=== PATIENT | female | born 1985 | race Caucasian/White ===

== ENCOUNTER 2021-02-01 20:37 | Inpatient (IN) | payer OTHER, SELFPAY ==
--- NOTE | ~2021-02-01 | CT_ITS ---
EXAMINATION: CT guided aspiration DATE: 02/02/2021 13:52 INDICATION: Pelvic inflammatory disease with multiple pelvic abscesses. TECHNIQUE: The procedure including the risks, benefits, and alternatives was discussed with the patie nt. Risks discussed included bleeding. The patient understood the risks and benefits and agreed to pr oceed. The patient was confirmed to be receiving appropriate antibiotic coverage. The patient was ana trevin prone. The skin overlying the left buttock was prepped and draped in usual sterile fashion. Anest hetic was administered with 1% lidocaine subcutaneously and in the deeper tissue. An 18 gauge trochar needle was inserted into the perisigmoid abscess with CT guidance. Fluid was aspirated. The patient was then placed supine. The skin overlying the right abdomen was prepped and draped in us ua sterile fashion. Anesthetic was administered with 1% lidocaine subcutaneously and in the deeper t issue. An 18-gauge trochar needle was inserted into the right tubo-ovarian abscess with CT guidance. Fluid was aspirated. The mA was adjusted according to patient size. Iterative reconstruction techniqu e was employed. The dose-length product was 382.74 mGy-cm. There were no immediate complications. FINDINGS: CT images demonstrate the needle within the perisigmoid abscess. 4 mL fluid was aspirated. CT images demonstrate the needle within the right tubo-ovarian abscess. 9 mL fluid was aspirated. No drains were placed. IMPRESSION: 1. CT-guided aspiration of a perisigmoid abscess yielding 4 mL clear, orange-colored fluid, which was discarded. 2. CT-guided aspiration of a right tubo-ovarian abscess using 9 mL opaque, wiseman fluid, which was sent for aerobic and anaerobic cultures. Reviewed, dictated and finalized at location A. IMPRESSION: 1. CT-guided aspiration of a perisigmoid abscess yielding 4 mL clear, orange-co lored fluid, which was discarded. 2. CT-guided aspiration of a right tubo-ovarian abscess using 9 mL opaque, wiseman fluid, which was sent for aerobic and anaerobic cultures.
[2021-02-01 19:40] VITALS: BP 106/72; PULSE 96; RESP 18; TEMP 36.8; O2SAT 100; BMI 32.8
--- NOTE | 2021-02-01 20:21 | ADMGEN ---
This patient, Violet Guillen, was admitted to 3 [facility] Surg Room 300-01. Patient/family oriented to hospital policies and general routines including ID bracelet, bed and alarms, visiting hours, pain management, procedures, bathroom and other care routines, personal items, smoking policy, room service/diet, and visiting hours. Information on how to activate the Rapid Response Team has been discussed. Patient/Family are encouraged to report perceived risks to care and to ask questions if they do not understand what they are told or what they should do.
[2021-02-01] MEDS: DEXTROSE 5%/LACTATED RINGERS 1,000 ML 150 ML IV CONT (22:38)
[2021-02-01] MEDS: AMPICILLIN 2 GM/NS 100 ML 2 GM/100 ML BAG IVPB (22:39)
[2021-02-01] MEDS: CLINDAMYCIN 900 MG/D5W 50 ML 900 MG/50 ML PIGGYBACK 50 MG IVPB (23:29)
[2021-02-01 23:42] VITALS: BP 107/58; PULSE 88; RESP 18; TEMP 37.6; O2SAT 97
[2021-02-02] MEDS: GENTAMICIN SULFATE INJ 315 MG in DEXTROSE 5% 100 ML 100 MG IVPB (00:22)
[2021-02-02] MEDS: HYDROmorphone HCL INJ (*CRX) 1 MG/ML SYR IV PUSH ×5 (03:23→21:58)
[2021-02-02] MEDS: AMPICILLIN 2 GM/NS 100 ML 2 GM/100 ML BAG IVPB ×4 (03:26→21:39)
[2021-02-02 04:00] VITALS: BP 101/61; PULSE 86; RESP 20; TEMP 36.8; O2SAT 99
[2021-02-02] MEDS: CLINDAMYCIN 900 MG/D5W 50 ML 900 MG/50 ML PIGGYBACK 50 MG IVPB ×3 (06:28→22:44)
[2021-02-02 06:44] LABS: Hematocrit 35.2 % (37.0-47.0); Hemoglobin 11.5 g/dL (12.0-15.0); Mean Corpuscular HGB Conc 32.7 g/dl (32-36); Mean Corpuscular Hemoglobin 30.2 pg (26-34); Mean Corpuscular Volume 92.4 fl (80-100); Mean Platelet Volume 8.8 fl (7.4-10.4); Platelet Count Result 266 k/mm3 (150-375); Red Blood Count 3.81 M/mm3 (4.2-5.4); Red Cell Distribution Width 12.6 % (11.5-14.5)
[2021-02-02 07:03] LABS: Alanine Aminotransferase 12 U/L (4-35); Albumin Level 3.3 g/dL (3.5-5.1); Alkaline Phosphatase 98 U/L (38-126); Anion Gap 7 mmol/L (8-16); Aspartate Amino Transferase 19 U/L (14-36); Bilirubin,Total 0.7 mg/dL (0.2-1.3); Blood Urea Nitrogen 8 mg/dL (7-17); Calcium 8.3 mg/dL (8.4-10.2); Carbon Dioxide 32 mmol/L (22-30); Chloride 90 mmol/L (98-107); Estimated CRCL calculation 96 ml/min; Estimated Glomerular Filt Rate > 60; Glucose 127 mg/dL (65-110); Potassium 2.9 mmol/L (3.4-5.0); Sodium 129 mmol/L (137-145)
--- NOTE | 2021-02-02 08:14 | PM.IMHP ---
H&P: HPI History of Present Illness Date/Time: 02/02/21 08:15 this patient is a 35-year-old multiparous female who presented to our institution in transfer from [facility] emergency department. She presented there with 1 week of pelvic pain. She reports today that her pelvic pain was worsening over that period of time. She felt fevers. She was diaphoretic. She denies any history of sexually transmitted disease. She denies any nausea, vomiting, chills. She denies any abnormal vaginal discharge. She has had some irregular vaginal bleeding recently. She has a longstanding history severe menorrhagia. She is on oral contraceptive pills. She also has history of well-controlled hypertension. Chief Complaint: Pelvic pain Review of Systems Constitutional: Constitutional: Reports no additional constitutional complaints, Denies fatigue, Denies headache(s), Denies lethargy and Denies weakness Eyes: Eyes: Reports no additional eye complaints, Denies blurry vision and Denies photophobia ENT: Reports as per HPI, Denies headache(s) and Denies neck pain Cardiovascular: Cardiovascular: Denies chest pain, Denies diaphoresis, Denies leg edema, Denies palpitations and Denies dyspnea Respiratory: Respiratory: Denies hemoptysis, Denies dyspnea and Denies wheezing Gastrointestinal: Gastrointestinal: Denies abdominal pain, Denies melena, Denies bloating, Denies hematochezia, Denies nausea and Denies vomiting Genitourinary: Genitourinary: Reports no additional female genitourinary complaints Musculoskeletal: Musculoskeletal: Denies joint swelling, Denies neck pain, Denies numbness and Denies stiffness Neurologic: Denies Abnormal speech present, Denies confusion, Denies headache(s), Denies numbness and Denies weakness Psychiatric: Psychiatric: Denies anxiety, Denies confusion, Denies depression, Denies homicidal ideation and Denies suicidal ideation Endocrine: Endocrine: Denies fatigue and Denies palpitations Allergic/Immunologic: Allergic/Immunologic: Denies wheezing PMFSH Social History Social History Gender identity (if verbalized by the patient): Female Spiritual care concerns: No Meds Home Medications and Allergies Home Medications Medication Instructions Recorded Confirmed Type norethindrone (contraceptive) 0.35 mg PO DAILY 02/01/21 02/01/21 History [Jencycla] triamterene-hydrochlorothiazid 1 tablet PO DAILY 02/01/21 02/01/21 History Allergies Allergy/AdvReac Type Severity Reaction Status Date / Time No Known Allergies Allergy Verified 02/01/21 21:42 Vital Signs Vital Signs - 24 hr 02/01/21 19:40 02/01/21 23:42 02/02/21 04:00 Temperature 98.2 F 99.7 F H 98.2 F Pulse Rate 96 88 86 Respiratory Rate 18 18 20 Blood Pressure 106/72 107/58 L 101/61 Pulse Oximetry 100 97 99 Exam Const: General: healthy appearing, comfortable and no acute distress; No confusion Orientation/consciousness: No confusion Eyes: Direct Ophthalmoscopy: No photophobia Resp: Auscultation: clear to auscultation bilaterally, no rales, no rhonchi and no wheezes Cardio: Rate: regular rate Heart sounds: no click, no murmurs and no rubs GI: Inspection: non-distended GI Palp: Yes abdominal tenderness Auscultation: normal bowel sounds Neuro: General: No confusion Speech: No Abnormal speech present Extrem: General: normal to inspection, no pedal edema and no calf tenderness H&P: Results Labs Labs: Short CBC 02/02/21 Range/Units 05:55 WBC 14.0 H (4.5-10.0) K/mm3 Hgb 11.5 L (12.0-15.0) g/dL Hct 35.2 L (37.0-47.0) % Plt Count 266 (150-375) k/mm3 BMP 02/02/21 05:55 Sodium 129 L Potassium 2.9 L Chloride 90 L Carbon Dioxide 32 H BUN 8 Creatinine 0.70 Glucose 127 H Calcium 8.3 L Liver Function 02/02/21 Range/Units 05:55 Total Bilirubin 0.7 (0.2-1.3) mg/dL AST 19 (14-36) U/L ALT 12 (4-35) U/L Alkaline Phosphatase 98 (38-126) U/L Albumin 3.3 L (3.5-5.1)
[2021-02-02] MEDS: DEXTROSE 5%/LACTATED RINGERS 1,000 ML 150 ML IV CONT (09:30)
[2021-02-02] MEDS: ONDANSETRON INJ 4 MG/2 ML VIAL IV PUSH (09:31)
[2021-02-02 09:57] LABS: INR 1.3; Prothrombin Time 15.8 Seconds (11.1-14.7)
[2021-02-02 09:58] LABS: Partial Thromboplastin Time 41.7 SECONDS (22.3-36.8)
[2021-02-02 11:38] LABS: Gentamicin Random 1.3 ug/mL (5.0-12.0)
[2021-02-02 12:00] VITALS: BP 115/71; PULSE 89; RESP 18; TEMP 36.7; O2SAT 100
[2021-02-02 13:53] VITALS: BP 112/75; BP 115/71; PULSE 101; PULSE 89; RESP 18; O2SAT 100; O2SAT 93
--- NOTE | 2021-02-02 15:40 | PM.IMCN ---
Assessment and Plan Assessment and plan (1) Sepsis: Code(s): A41.9 - Sepsis, unspecified organism Status: Acute (2) Pelvic abscess: Status: Acute (3) Pelvic inflammatory disease: Code(s): N73.9 - Female pelvic inflammatory disease, unspecified Status: Acute (4) Bacteremia: Code(s): R78.81 - Bacteremia Status: Acute (5) Hypertension: Code(s): I10 - Essential (primary) hypertension Status: Acute (6) Hypokalemia: Code(s): E87.6 - Hypokalemia Status: Acute Additional Plan Sepsis with presenting symptoms with tachycardia and leukocytosis underlying pelvic abscesses as the site of infection Pelvic abscesses multiple seen in CT scan abdomen and pelvis. Plan for CT-guided aspiration/drainage. Suspected from underlying pelvic inflammatory disease. On empiric gentamicin clindamycin and ampicillin per OBGYN Hypokalemia replace continue to monitor check magnesium Right ureteritis? Reactive Bacteremia with Gram-positive cocci in clusters will cover with vancomycin until finalized from [facility]. Will repeat blood cultures here today Hyponatremia [facility] labs showed sodium level of 133 currently 129 will change the fluid to normal saline DVT prophylaxis per primary Full code status Thank you for the consult will follow along with you HPI Data of Consult Consult date: 02/02/21 Requesting Physician: Kervin Mckeon MD Reason for consultation: Medical management Primary Care Provider: NISREEN,MAYRA Galdamez TEST DEVELOPER-C Consult Narrative Narrative: Violet Guillen is a 35 year old female was transferred from [facility] in [place] Emergency Department where she presented with 1 week of lower abdominal pain which has been worsening since then. This is associated with was Shyam bleed for the same duration. She states she just finished her period 2 days prior to the start of new bleeding associated with lower abdominal pain. She denies any fever or chills. She denies any nausea vomiting. No prior history of abnormal vaginal discharge. She does have history of longstanding severe menorrhagia with passes of clots every month. She has been on oral contraceptive pills for this. Along with this she also has history of hypertension for which she is on hydrochlorothiazide and triamterene. Lab work in the ER revealed negative test lactate 1.2 which is within normal limit CMP with creatinine of 0.8 hypokalemic at 3.4 normal LFTs INR 1.1 urinalysis with 5-10 WBC along with 5-10 RBC. Cbc with hemo [place]BC count of 21,[place] [address] platelet of 378 lipase level of 61 CT abdomen and pelvis with contrast showed No significant pulmonary abnormalities no effusion. Bibasilar atelectasis. Liver normal size 7 mm cyst right hepatic lobe. Gallbladder no stones identified no optic in Ng or inflammatory changes. Bile ducts no intrahepatic or extrahepatic ductal dilatation. Spleen normal size no focal lesions. Calcified granulomas. Pancreas no identified cystic or solid masses. No significant calcifications. No adjacent inflammation or peripancreatic fluid collections. Pancreatic duct not dilated. Adrenals normal. Kidneys/urinary tract no identified significant cystic or solid masses. No visualized stones. No hydronephrosis or hydroureter. Symmetric enhancement. There is mild thickening enhancement of the wall of the right ureter. Coronary clinically for right ureteritis. Urinary bladder is unremarkable. GI: There is mild thickening of the wall of the sigmoid colon which is probably reactive. For no evidence of bowel obstruction. Appendix is not definitely visualized. Peritoneum: Small amount of free fluid within the pelvis. No evidence of free air. Retroperitoneum: No mass or adenopathy. Reproductive: The fallopian tubes are dilated bilaterally and there is abundant inflammatory stranding in the adnexal areas bilaterally. On right adnexa there is a 4.1 cm multipl
[2021-02-02 16:00] VITALS: BP 107/61; PULSE 82; RESP 16; TEMP 36.4; O2SAT 96
[2021-02-02] MEDS: SACCHAROMYCES BOULARDII 250 MG CAPSULE PO (17:52)
[2021-02-02] MEDS: HYDROcodone/acetaminophen (*CRX) 5-325 MG TABLET 1 TAB PO (18:35)
[2021-02-02 20:00] VITALS: BP 103/54; PULSE 90; RESP 18; TEMP 35.9; O2SAT 98
[2021-02-02 23:46] VITALS: BP 87/57; PULSE 76; RESP 18; TEMP 36.4; O2SAT 100
[2021-02-03] MEDS: GENTAMICIN SULFATE INJ 315 MG in DEXTROSE 5% 100 ML 100 MG IVPB (00:49)
[2021-02-03] MEDS: HYDROmorphone HCL INJ (*CRX) 1 MG/ML SYR IV PUSH ×5 (01:49→16:42)
[2021-02-03 04:00] VITALS: BP 93/58; PULSE 71; RESP 18; TEMP 36.1; O2SAT 99
[2021-02-03] MEDS: AMPICILLIN 2 GM/NS 100 ML 2 GM/100 ML BAG IVPB ×4 (05:04→22:05)
[2021-02-03 06:12] LABS: Hematocrit 34.7 % (37.0-47.0); Hemoglobin 11.4 g/dL (12.0-15.0); Mean Corpuscular HGB Conc 32.9 g/dl (32-36); Mean Corpuscular Hemoglobin 30.3 pg (26-34); Mean Corpuscular Volume 92.3 fl (80-100); Mean Platelet Volume 8.8 fl (7.4-10.4); Platelet Count Result 244 k/mm3 (150-375); Red Blood Count 3.76 M/mm3 (4.2-5.4); Red Cell Distribution Width 12.6 % (11.5-14.5); White Blood Count 7.6 K/mm3 (4.5-10.0)
[2021-02-03 06:26] LABS: Anion Gap 6 mmol/L (8-16); Blood Urea Nitrogen 7 mg/dL (7-17); Calcium 7.5 mg/dL (8.4-10.2); Carbon Dioxide 28 mmol/L (22-30); Chloride 100 mmol/L (98-107); Estimated CRCL calculation 110 ml/min; Estimated Glomerular Filt Rate > 60; Glucose 95 mg/dL (65-110); Magnesium 1.8 mg/dL (1.6-2.3); Potassium 3.2 mmol/L (3.4-5.0); Sodium 134 mmol/L (137-145)
[2021-02-03] MEDS: CLINDAMYCIN 900 MG/D5W 50 ML 900 MG/50 ML PIGGYBACK 50 MG IVPB ×3 (07:00→23:00)
[2021-02-03 08:00] VITALS: BP 101/61; PULSE 74; RESP 14; TEMP 36.6; O2SAT 98
[2021-02-03] MEDS: HYDROcodone/acetaminophen (*CRX) 5-325 MG TABLET 1 TAB PO (08:43)
[2021-02-03] MEDS: SACCHAROMYCES BOULARDII 250 MG CAPSULE PO ×2 (08:44→16:25)
[2021-02-03] MEDS: SODIUM CHLORIDE 0.9% IV 1,000 ML 75 ML IV CONT (08:46)
--- NOTE | 2021-02-03 10:11 | PM.GYNPNOP ---
JAVA PROGRAMMER ANALYST - A/P Assessment and plan (1) Pelvic abscess: Status: Acute (2) Pelvic inflammatory disease: Code(s): N73.9 - Female pelvic inflammatory disease, unspecified Status: Acute (3) Sepsis: Code(s): A41.9 - Sepsis, unspecified organism Status: Acute (4) Bacteremia: Code(s): R78.81 - Bacteremia Status: Acute (5) Hypertension: Code(s): I10 - Essential (primary) hypertension Status: Acute Assessment and Plan: This patient is a 35-year-old female with pelvic inflammatory disease and tubo-ovarian abscess. Two of the Abscesses were drained yesterday by our percutaneous aspiration, CT-guided. There are 3. Antibiotics were changed to suit a positive blood culture from an outside hospital. To start higher dose progesterone to counter vaginal bleeding. Continue observation. Would consider discharge today patient is interested. She is clinically stable. Could start oral antibiotics. Perhaps recommendation from medicine on oral antibiotics for outpatient treatment. Time Spent With Patient Time: Total time spent is greater than 50% in coordination of care (as documented) at patient's floor/unit and/or counseling patient: Time with patient: 15 - 25 minutes JAVA PROGRAMMER ANALYST- PN:Subj Post-Op Subjective Date/time seen: 02/03/21 10:11 Patient is comfortable, denies fever chills. Mild nausea, no vomiting. Exam Const: General: healthy appearing, comfortable and no acute distress Resp: Auscultation: clear to auscultation bilaterally, no rales, no rhonchi and no wheezes Cardio: Rate: regular rate Heart sounds: no click, no murmurs and no rubs GI: Inspection: non-distended Auscultation: normal bowel sounds Extrem: General: normal to inspection, no pedal edema and no calf tenderness JAVA PROGRAMMER ANALYST - PN: Obj Data Vital Signs Vital Signs: Vital Signs - 24 hr 02/02/21 12:00 02/02/21 13:53 02/02/21 16:00 Temperature 98.1 F 97.6 F Pulse Rate 89 89 82 Respiratory Rate 18 18 16 Blood Pressure 115/71 115/71 107/61 Pulse Oximetry 100 100 96 02/02/21 20:00 02/02/21 23:46 02/03/21 04:00 Temperature 96.6 F L 97.5 F L 96.9 F L Pulse Rate 90 76 71 Respiratory Rate 18 18 18 Blood Pressure 103/54 L 87/57 L 93/58 L Pulse Oximetry 98 100 99 02/03/21 08:00 Temperature 97.8 F Pulse Rate 74 Respiratory Rate 14 Blood Pressure 101/61 Pulse Oximetry 98 Intake/Output Intake/Output: Intake & Output 01/31/21 02/01/21 02/02/21 02/03/21 23:59 23:59 23:59 23:59 Intake Total 100 3277.875 1235 Output Total 700 900 Balance 100 2577.875 335 Meds/Results Medications: Active Medications Generic Name Dose Route Start Last Admin Trade Name Freq PRN Reason Stop Dose Admin Hydrocodone Bitart/Acetaminophen 1 tab 02/02/21 18:12 02/03/21 08:43 Hydrocodone/Acetaminophen (*Crx) 5-325 Mg Tablet PO 1 tab Q4H PRN Administration Pain Rated 4-6 Hydromorphone HCl 1 mg 02/01/21 20:07 02/03/21 09:06 Hydromorphone Hcl Inj (*Crx) 1 Mg/Ml Syr IV PUSH 1 mg Q2HR PRN Administration Pain Rated 7-10 Ampicillin Sodium 2 gm in 100 mls @ 200 mls/hr 02/01/21 22:00 02/03/21 08:44 Ampicillin 2 Gm/Ns 100 Ml IVPB 200 mls/hr Q6H ANDERSON Administration Clindamycin Phosphate 900 mg in 50 mls @ 50 mls/hr 02/01/21 23:00 02/03/21 08:00 Cleocin 900 Mg/D5w 50 Ml IVPB Infused Q8H ANDERSON Infusion Sodium Chloride 1,000 mls @ 75 mls/hr 02/02/21 11:00 02/03/21 08:54 Normal Saline Iv IV CONT Not Given .[id number] ANDERSON Gentamicin Sulfate 315 mg/ 107.875 mls @ 100 mls/hr 02/03/21 00:00 02/03/21 01:15 Dextrose IVPB Infused Q24H ANDERSON Infusion Vancomycin HCl 1,250 mg in 250 mls @ 200 mls/hr 02/02/21 15:00 02/03/21 06:06 Vancomycin 1,250 Mg/D5w 250 Ml IVPB 200 mls/hr Q12H ANDERSON Infusion Ibuprofen 800 mg 08/27/21 18:11 Ibuprofen 400 Mg Tablet PO Q8HR PRN pain 1-3 Ondansetron HCl 4 mg 02/02/21 08:30 02/02/21 09:31 Ondansetron Inj 4 Mg
[2021-02-03 11:52] VITALS: BP 101/64; PULSE 78; RESP 14; TEMP 36.5; O2SAT 100
--- NOTE | 2021-02-03 12:53 | PM.IMPN ---
Progress Note: A&P Assessment and Plan (1) Sepsis: Code(s): A41.9 - Sepsis, unspecified organism Status: Acute (2) Pelvic abscess: Status: Acute (3) Pelvic inflammatory disease: Code(s): N73.9 - Female pelvic inflammatory disease, unspecified Status: Acute (4) Bacteremia: Code(s): R78.81 - Bacteremia Status: Acute (5) Hypertension: Code(s): I10 - Essential (primary) hypertension Status: Acute (6) Hypokalemia: Code(s): E87.6 - Hypokalemia Status: Acute Additional Plan Sepsis due to pelvic inflammatory disease with presenting symptoms with tachycardia and leukocytosis underlying pelvic abscesses as the site of infection Pelvic abscesses multiple seen in CT scan abdomen and pelvis. CT-guided aspiration/drainage 02/02- gram stain with WBC but no organisms, cultures pending. Suspected from underlying pelvic inflammatory disease. On empiric gentamicin clindamycin and ampicillin per OBGYN Vaginal bleeding: Mgt per primary, history of long-standing severe menorrhagia, she is on progesterone which is being titrated Hypokalemia: ordered replacement, monitor Right ureteritis? Reactive, this should be re-assessed once her PID is controlled and pelvic inflammation subsided Bacteremia with Gram-positive cocci in clusters will cover with vancomycin until finalized from outlying hospital. Repeat blood cultures in house pending. Will hold Ibuprofen in setting of receiving gentamicin given combined nephrotoxicity DVT prophylaxis per primary Full code status Subjective Date/time seen: 02/03/21 12:53 Reports persistent abdominal pain with cramps. Reports vaginal bleeding with some clots. Hemodynamically stable but blood pressure is soft. Afebrile. Review of Systems Review of Systems: All systems reviewed & are unremarkable except as noted in HPI and below Exam Narrative: Gen: Alert, looks uncomfortable Abd: Soft, ND, diffusely tender to palpation Heart: RRR Lungs: CTAB Ext: No lower extremity edema Objective Data Vital Signs Vital Signs: Vital Signs - 24 hr 02/02/21 13:53 02/02/21 16:00 02/02/21 20:00 Temperature 97.6 F 96.6 F L Pulse Rate 89 82 90 Respiratory Rate 18 16 18 Blood Pressure 115/71 107/61 103/54 L Pulse Oximetry 100 96 98 02/02/21 23:46 02/03/21 04:00 02/03/21 08:00 Temperature 97.5 F L 96.9 F L 97.8 F Pulse Rate 76 71 74 Respiratory Rate 18 18 14 Blood Pressure 87/57 L 93/58 L 101/61 Pulse Oximetry 100 99 98 02/03/21 11:52 Temperature 97.7 F Pulse Rate 78 Respiratory Rate 14 Blood Pressure 101/64 Pulse Oximetry 100 Intake/Output Intake/Output: Intake & Output 01/31/21 02/01/21 02/02/21 02/03/21 23:59 23:59 23:59 23:59 Intake Total 100 3277.875 1335 Output Total 700 900 Balance 100 2577.875 435 Meds/Results Medications: Active Medications Generic Name Dose Route Start Last Admin Trade Name Freq PRN Reason Stop Dose Admin Hydrocodone Bitart/Acetaminophen 1 tab 02/02/21 18:12 02/03/21 08:43 Hydrocodone/Acetaminophen (*Crx) 5-325 Mg Tablet PO 1 tab Q4H PRN Administration Pain Rated 4-6 Hydromorphone HCl 1 mg 02/01/21 20:07 02/03/21 09:06 Hydromorphone Hcl Inj (*Crx) 1 Mg/Ml Syr IV PUSH 1 mg Q2HR PRN Administration Pain Rated 7-10 Ampicillin Sodium 2 gm in 100 mls @ 200 mls/hr 02/01/21 22:00 02/03/21 09:14 Ampicillin 2 Gm/Ns 100 Ml IVPB Infused Q6H ANDERSON Infusion Clindamycin Phosphate 900 mg in 50 mls @ 50 mls/hr 02/01/21 23:00 02/03/21 08:00 Cleocin 900 Mg/D5w 50 Ml IVPB Infused Q8H ANDERSON Infusion Sodium Chloride 1,000 mls @ 75 mls/hr 02/02/21 11:00 02/03/21 08:54 Normal Saline Iv IV CONT Not Given .[id number] ANDERSON Gentamicin Sulfate 315 mg/ 107.875 mls @ 100 mls/hr 02/03/21 00:00 02/03/21 01:15 Dextrose IVPB Infused Q24H ANDERSON Infusion Vancomycin HCl 1,250 mg in 250 mls @ 200 mls/hr 02/02/21 15:00 02/03/21 06:06 Vancomyci
[2021-02-03] MEDS: ONDANSETRON INJ 4 MG/2 ML VIAL IV PUSH (12:58)
--- NOTE | 2021-02-03 15:56 | PC.NURSE ---
This RN called [facility] to check with lab regarding positive blood culture from 02/01/21 from their ED. Lab stated 1 out of 4 BC positive for a coag negative staph, likely a contaminant. Called these results to Dr. Ferrer, who ordered the vancomycin to be D/C'ed at this time. WIll continue to monitor the growth of BCs at [facility] and the BCs drawn here.
[2021-02-03 16:00] VITALS: BP 103/64; PULSE 76; RESP 16; TEMP 36.8; O2SAT 100
[2021-02-03] MEDS: POTASSIUM CHLORIDE 20 MEQ TABLET 60 MEQ PO (16:24)
[2021-02-03] MEDS: ACETAMINOPHEN 500 MG TABLET PO ×2 (16:25→20:09)
[2021-02-03] MEDS: PROCHLORPERAZINE EDISYLATE 10 MG/2 ML VIAL (16:48)
[2021-02-03 16:50] VITALS: BP 99/65; PULSE 73; RESP 16; TEMP 36.9; O2SAT 98
[2021-02-03 16:51] LABS: Glucose Point of Care 74 mg/dl (65-105)
[2021-02-03 17:29] LABS: Glucose Point of Care 81 mg/dl (65-105)
--- NOTE | 2021-02-03 17:59 | PC.NURSE ---
at 1620, this RN went to give evening medications to patient, noticed pt was extremely pale and diaphoretic, and asked pt how she was feeling. Pt stated she feels like she is in heaven. Asked pt for clarification, pt states she feels not right and nauseated, crying in pain, clutching bedrails, and stating that her contractions are back. In questioning pt, she stated that she feels dizzy. Pt states she has felt dizzy before and ended up passing out and stopping breathing. Took pt vitals (charted as 1650), got pt BS which was 73, gave pt soda and juice at bedside, along with a ruth. Pt states less dizzy. Called MD who came to bedside. He feels it is due to low sugar, asked for 30 minute recheck. Rechecked blood sugar and found it to be 83. Called MD to make aware and see if we wanted to change fluids. He ordered fluids to D5NS at 75 mls/hr. Will hang new fluids and continue to monitor.
[2021-02-03] MEDS: DEXTROSE 5%/0.9% SOD CHL 1,000 ML 75 ML IV CONT (18:51)
[2021-02-03 20:00] VITALS: BP 97/60; PULSE 75; RESP 18; TEMP 35.9; O2SAT 97
[2021-02-04] VITALS (7 sets, daily range): BP systolic 88–114; BP diastolic 52–68; PULSE 61–104; RESP 18–20; TEMP 35.5–36.8; O2SAT 91–100
[2021-02-04] MEDS: GENTAMICIN SULFATE INJ 315 MG in DEXTROSE 5% 100 ML 100 MG IVPB (00:55)
[2021-02-04] MEDS: ACETAMINOPHEN 500 MG TABLET PO ×6 (00:56→21:32)
[2021-02-04] MEDS: AMPICILLIN 2 GM/NS 100 ML 2 GM/100 ML BAG IVPB ×2 (04:39→12:02)
[2021-02-04 06:42] LABS: Anion Gap 6 mmol/L (8-16); Blood Urea Nitrogen 6 mg/dL (7-17); Calcium 7.9 mg/dL (8.4-10.2); Carbon Dioxide 30 mmol/L (22-30); Chloride 100 mmol/L (98-107); Estimated CRCL calculation 110 ml/min; Estimated Glomerular Filt Rate > 60; Glucose 87 mg/dL (65-110); Sodium 136 mmol/L (137-145)
[2021-02-04] MEDS: DEXTROSE 5%/0.9% SOD CHL 1,000 ML 75 ML IV CONT (08:04)
[2021-02-04] MEDS: CLINDAMYCIN 900 MG/D5W 50 ML 900 MG/50 ML PIGGYBACK 50 MG IVPB (08:04)
[2021-02-04] MEDS: SACCHAROMYCES BOULARDII 250 MG CAPSULE PO ×2 (08:09→18:45)
[2021-02-04] MEDS: HYDROcodone/acetaminophen (*CRX) 5-325 MG TABLET 1 TAB PO (08:16)
--- NOTE | 2021-02-04 10:41 | PM.IMPN ---
Progress Note: A&P Assessment and Plan (1) Sepsis: Code(s): A41.9 - Sepsis, unspecified organism Status: Acute (2) Pelvic abscess: Status: Acute (3) Pelvic inflammatory disease: Code(s): N73.9 - Female pelvic inflammatory disease, unspecified Status: Acute (4) Bacteremia: Code(s): R78.81 - Bacteremia Status: Acute (5) Hypertension: Code(s): I10 - Essential (primary) hypertension Status: Acute (6) Hypokalemia: Code(s): E87.6 - Hypokalemia Status: Acute Additional Plan Sepsis due to pelvic inflammatory disease with presenting symptoms with tachycardia and leukocytosis underlying pelvic abscesses as the site of infection Pelvic abscesses multiple seen in CT scan abdomen and pelvis. CT-guided aspiration/drainage 02/02- gram stain with WBC but no organisms, cultures pending. Suspected from underlying pelvic inflammatory disease. On empiric gentamicin clindamycin and ampicillin per OBGYN Vaginal bleeding: Mgt per primary, history of long-standing severe menorrhagia, she is on progesterone which is being titrated Hypokalemia: ordered replacement, monitor Right ureteritis? Reactive, this should be re-assessed once her PID is controlled and pelvic inflammation subsided Bacteremia with Gram-positive cocci in clusters: This was 1/4 bottles an outside hospital, coagulase-negative staph, deemed to be contaminant, vancomycin discontinued. Repeat blood cultures in house negative to date. Will hold Ibuprofen in setting of receiving gentamicin given combined nephrotoxicity DVT prophylaxis per primary Full code status Subjective Date/time seen: 02/04/21 10:41 Feeling her abdominal pain is better this morning. No major issues overnight. Yesterday afternoon she had the low blood glucose readings and was encouraged to increase oral intake. She has not needed IV pain medication through the night. Blood pressure remains soft but otherwise hemodynamically stable. Review of Systems Review of Systems: All systems reviewed & are unremarkable except as noted in HPI and below Exam Narrative: Gen: Alert, NAD Abd: Soft, mildly tender to palpation in the lower quadrants, ND Heart: RRR Lungs: CTAB Ext: No lower extremity edema Objective Data Vital Signs Vital Signs: Vital Signs - 24 hr 02/03/21 11:52 02/03/21 16:00 02/03/21 16:50 Temperature 97.7 F 98.2 F 98.4 F Pulse Rate 78 76 73 Respiratory Rate 14 16 16 Blood Pressure 101/64 103/64 99/65 L Pulse Oximetry 100 100 98 02/03/21 20:00 02/04/21 00:00 02/04/21 04:00 Temperature 96.7 F L 97.0 F L 97.8 F Pulse Rate 75 67 71 Respiratory Rate 18 18 18 Blood Pressure 97/60 L 102/59 L 111/65 Pulse Oximetry 97 100 99 02/04/21 08:00 Temperature 96 F L Pulse Rate 76 Respiratory Rate 20 Blood Pressure 89/54 L Pulse Oximetry 94 Intake/Output Intake/Output: Intake & Output 02/01/21 02/02/21 02/03/21 02/04/21 23:59 23:59 23:59 23:59 Intake Total 100 3277.875 2285 2100 Output Total 700 1600 1000 Balance 100 2577.540 290 9545 Meds/Results Medications: Active Medications Generic Name Dose Route Start Last Admin Trade Name Freq PRN Reason Stop Dose Admin Acetaminophen 500 mg 02/03/21 16:00 02/04/21 08:09 Acetaminophen 500 Mg Tablet PO 500 mg Q4H ANDERSON Administration Hydrocodone Bitart/Acetaminophen 1 tab 02/02/21 18:12 02/04/21 08:16 Hydrocodone/Acetaminophen (*Crx) 5-325 Mg Tablet PO 1 tab Q4H PRN Administration Pain Rated 4-6 Hydromorphone HCl 1 mg 02/01/21 20:07 02/03/21 16:42 Hydromorphone Hcl Inj (*Crx) 1 Mg/Ml Syr IV PUSH 1 mg Q2HR PRN Administration Pain Rated 7-10 Ampicillin Sodium 2 gm in 100 mls @ 200 mls/hr 02/01/21 22:00 02/04/21 04:39 Ampicillin 2 Gm/Ns 100 Ml IVPB 200 mls/hr Q6H ANDERSON Administration Clindamycin Phosphate 900 mg in 50 mls @ 50 mls/hr 02/01/21 23:00 02/04/21 08:04 Cleocin 900 Mg/D5w 50 Ml IVPB 50 mls/hr Q8H
[2021-02-04] MEDS: POTASSIUM CHLORIDE 20 MEQ TABLET.ER 40 MEQ PO ×2 (12:02→18:46)
--- NOTE | 2021-02-04 12:56 | PM.GYNPNOP ---
PRICE ACCURACY SUPERVISOR - A/P Assessment and plan (1) Pelvic abscess: Status: Acute (2) Pelvic inflammatory disease: Code(s): N73.9 - Female pelvic inflammatory disease, unspecified Status: Acute Assessment and Plan: Patient is a 35-year-old female with pelvic inflammatory disease, pelvic abscesses, vaginal bleeding. Vaginal bleeding appears to have resolved at this time. She was given 10 mg of medroxyprogesterone yesterday. This should be continued today. She is afebrile. Her white count is improving, her pain is improving. We are going to change to oral antibiotics this afternoon and continue those consider discharge tomorrow. She is tolerating p.o.. She has not had a bowel movement. To start MiraLax. Time Spent With Patient Time: Total time spent is greater than 50% in coordination of care (as documented) at patient's floor/unit and/or counseling patient: Time with patient: 15 - 25 minutes PRICE ACCURACY SUPERVISOR- PN:Sulma Post-Op Subjective Date/time seen: 02/04/21 12:56 Patient is somnolent, less pelvic pain,, reports feeling better, denies any nausea, vomiting, fever, chills. Denies any vaginal bleeding today. Exam Const: General: healthy appearing, comfortable and no acute distress Resp: Auscultation: clear to auscultation bilaterally, no rales, no rhonchi and no wheezes Cardio: Rate: regular rate Heart sounds: no click, no murmurs and no rubs GI: Inspection: non-distended Auscultation: normal bowel sounds Extrem: General: normal to inspection, no pedal edema and no calf tenderness PRICE ACCURACY SUPERVISOR - PN: Obj Data Vital Signs Vital Signs: Vital Signs - 24 hr 02/03/21 16:00 02/03/21 16:50 02/03/21 20:00 Temperature 98.2 F 98.4 F 96.7 F L Pulse Rate 76 73 75 Respiratory Rate 16 16 18 Blood Pressure 103/64 99/65 L 97/60 L Pulse Oximetry 100 98 97 02/04/21 00:00 02/04/21 04:00 02/04/21 08:00 Temperature 97.0 F L 97.8 F 96 F L Pulse Rate 67 71 76 Respiratory Rate 18 18 20 Blood Pressure 102/59 L 111/65 89/54 L Pulse Oximetry 100 99 94 02/04/21 12:00 Temperature 97.3 F L Pulse Rate 71 Respiratory Rate 20 Blood Pressure 88/52 L Pulse Oximetry 100 Intake/Output Intake/Output: Intake & Output 02/01/21 02/02/21 02/03/21 02/04/21 23:59 23:59 23:59 23:59 Intake Total 100 3277.875 2285 2200 Output Total 700 1600 1000 Balance 100 2577.318 461 9592 Meds/Results Medications: Active Medications Generic Name Dose Route Start Last Admin Trade Name Freq PRN Reason Stop Dose Admin Acetaminophen 500 mg 02/03/21 16:00 02/04/21 12:03 Acetaminophen 500 Mg Tablet PO 500 mg Q4H ANDERSON Administration Hydrocodone Bitart/Acetaminophen 1 tab 02/02/21 18:12 02/04/21 08:16 Hydrocodone/Acetaminophen (*Crx) 5-325 Mg Tablet PO 1 tab Q4H PRN Administration Pain Rated 4-6 Hydromorphone HCl 1 mg 02/01/21 20:07 02/03/21 16:42 Hydromorphone Hcl Inj (*Crx) 1 Mg/Ml Syr IV PUSH 1 mg Q2HR PRN Administration Pain Rated 7-10 Ampicillin Sodium 2 gm in 100 mls @ 200 mls/hr 02/01/21 22:00 02/04/21 12:02 Ampicillin 2 Gm/Ns 100 Ml IVPB 200 mls/hr Q6H ANDERSON Administration Clindamycin Phosphate 900 mg in 50 mls @ 50 mls/hr 02/01/21 23:00 02/04/21 11:25 Cleocin 900 Mg/D5w 50 Ml IVPB 50 mls/hr Q8H ANDERSON Infusion Gentamicin Sulfate 315 mg/ 107.875 mls @ 100 mls/hr 02/03/21 00:00 02/04/21 00:55 Dextrose IVPB 100 mls/hr Q24H ANDERSON Administration Dextrose/Sodium Chloride 1,000 mls @ 75 mls/hr 02/03/21 18:10 02/04/21 08:04 Dextrose 5% Sodium Chloride 0.9% IV CONT 75 mls/hr .[id number] ANDERSON Administration Ibuprofen 800 mg 02/02/21 18:11 Ibuprofen 400 Mg Tablet PO Q8HR PRN pain 1-3 Medroxyprogesterone Acetate 10 mg 02/04/21 09:00 08/29/21 12:03 Medroxyprogesterone Acetate 2.5 Mg Tablet PO 10 mg DAILY ANDERSON Administration Ondansetron HCl 4 mg 02/02/21 08:30 02/03/21 12:58 Ondansetron Inj 4 Mg/2 Ml Vial IV PUSH 4 mg Q6H PRN Administratio
[2021-02-04] MEDS: levoFLOXacin 750 MG TABLET PO (15:35)
[2021-02-04] MEDS: metroNIDAZOLE 250 MG TABLET 500 MG PO ×2 (15:35→21:30)
[2021-02-04] MEDS: polyethylene glycoL 3350 17 GM POWD.PACK PO (15:35)
[2021-02-05] MEDS: ACETAMINOPHEN 500 MG TABLET PO ×2 (01:30→08:23)
[2021-02-05 03:50] VITALS: BP 131/79; PULSE 82; RESP 18; TEMP 37.1; O2SAT 98
[2021-02-05] MEDS: metroNIDAZOLE 250 MG TABLET 500 MG PO (06:38)
[2021-02-05 07:04] LABS: Anion Gap 8 mmol/L (8-16); Blood Urea Nitrogen 4 mg/dL (7-17); Calcium 8.6 mg/dL (8.4-10.2); Carbon Dioxide 24 mmol/L (22-30); Chloride 105 mmol/L (98-107); Estimated CRCL calculation 130 ml/min; Estimated Glomerular Filt Rate > 60; Glucose 88 mg/dL (65-110); Potassium 3.8 mmol/L (3.4-5.0); Sodium 137 mmol/L (137-145)
[2021-02-05 07:54] VITALS: BP 126/87; PULSE 82; RESP 18; TEMP 35.6; O2SAT 100
--- NOTE | 2021-02-05 08:17 | PM.GYNPNOP ---
MOVER - A/P Assessment and plan (1) Pelvic abscess: Status: Acute (2) Bacteremia: Code(s): R78.81 - Bacteremia Status: Acute Assessment and Plan: This patient is a 35-year-old female with pelvic inflammatory disease and pelvic abscesses. Likely tubo-ovarian abscess. Abscesses were drained. She had been receiving IV antibiotics. She has slowly improved over for days. She is well today like to be discharged. Her white count is normal. Her blood pressures/vitals are normal. She will continue oral antibiotics. Will continue pain management. She will follow up in 3 days. Time Spent With Patient Time: Total time spent is greater than 50% in coordination of care (as documented) at patient's floor/unit and/or counseling patient: Time with patient: 15 - 25 minutes MOVER- PN:Sulma Post-Op Subjective Date/time seen: 02/05/21 08:17 improved pelvic pain. Patient ambulating well. Patient alert, energetic today. Denies fevers or chills. Bleeding is controlled. Exam Const: General: healthy appearing, comfortable and no acute distress Resp: Auscultation: clear to auscultation bilaterally, no rales, no rhonchi and no wheezes Cardio: Rate: regular rate Heart sounds: no click, no murmurs and no rubs GI: Inspection: non-distended Auscultation: normal bowel sounds Extrem: General: normal to inspection, no pedal edema and no calf tenderness MOVER - PN: Obj Data Vital Signs Vital Signs: Vital Signs - 24 hr 02/04/21 12:00 02/04/21 16:00 02/04/21 20:00 Temperature 97.3 F L 97 F L 98.2 F Pulse Rate 71 104 H 61 Respiratory Rate 20 20 18 Blood Pressure 88/52 L 92/63 L 114/68 Pulse Oximetry 100 93 91 02/04/21 23:48 02/05/21 03:50 02/05/21 07:54 Temperature 98.0 F 98.8 F 96.0 F L Pulse Rate 82 82 82 Respiratory Rate 20 18 18 Blood Pressure 110/59 L 131/79 126/87 Pulse Oximetry 100 98 100 Intake/Output Intake/Output: Intake & Output 02/02/21 02/03/21 02/04/21 02/05/21 23:59 23:59 23:59 23:59 Intake Total 3277.875 2285 2770 1490 Output Total 700 1600 2200 1100 Balance 2577.875 685 570 390 Meds/Results Medications: Active Medications Generic Name Dose Route Start Last Admin Trade Name Freq PRN Reason Stop Dose Admin Acetaminophen 500 mg 02/03/21 16:00 02/05/21 04:15 Acetaminophen 500 Mg Tablet PO Not Given Q4H COUNTS INCLUDE 234 BEDS AT [facility] Hydrocodone Bitart/Acetaminophen 1 tab 02/02/21 18:12 02/04/21 08:16 Hydrocodone/Acetaminophen (*Crx) 5-325 Mg Tablet PO 1 tab Q4H PRN Administration Pain Rated 4-6 Ibuprofen 800 mg 02/02/21 18:11 Ibuprofen 400 Mg Tablet PO Q8HR PRN pain 1-3 Levofloxacin 750 mg 02/04/21 13:40 02/04/21 15:35 Levofloxacin 750 Mg Tablet PO 750 mg DAILY ANDERSON Administration Medroxyprogesterone Acetate 10 mg 02/04/21 09:00 02/04/21 12:03 Medroxyprogesterone Acetate 2.5 Mg Tablet PO 10 mg DAILY ANDERSON Administration Metronidazole 500 mg 02/04/21 14:00 02/05/21 06:38 Metronidazole 250 Mg Tablet PO 500 mg Q8HR ANDERSON Administration Ondansetron HCl 4 mg 02/02/21 08:30 02/03/21 12:58 Ondansetron Inj 4 Mg/2 Ml Vial IV PUSH 4 mg Q6H PRN Administration Nausea And Vomiting Polyethylene Glycol 17 gm 02/04/21 14:39 02/04/21 15:35 Polyethylene Glycol 3350 17 Gm Powd.Pack PO 17 gm QAM PRN Administration Constipation Saccharomyces Boulardii 250 mg 02/02/21 17:00 02/04/21 18:45 Saccharomyces Boulardii 250 Mg Capsule PO 250 mg BID ANDERSON Administration Radiology Results: ITS Impressions Needle Aspiration CT 02/02/21 13:56 IMPRESSION: 1. CT-guided aspiration of a perisigmoid abscess yielding 4 mL clear, orange-colored fluid, which was discarded. 2. CT-guided aspiration of a right tubo-ovarian abscess using 9 mL opaque, wiseman fluid, which was sent for aerobic and anaerobic cultures. Labs CBC & Chem 7: 02/03/21 05:52 02/05/21 05:58 Labs: Laboratory Results - l
--- NOTE | 2021-02-05 08:21 | PM.DS ---
DS: Admitting Diagnosis Admitting Diagnosis Pelvic pain, fever DS: Discharge Diagnosis Discharge Diagnosis (1) Pelvic inflammatory disease: Code(s): N73.9 - Female pelvic inflammatory disease, unspecified Status: Acute (2) Pelvic abscess: Status: Acute (3) Bacteremia: Code(s): R78.81 - Bacteremia Status: Acute (4) Hypokalemia: Code(s): E87.6 - Hypokalemia Status: Acute DS: Summary Hospital Course Hospital Course: Patient is a 35-year-old female who was admitted the hospital through a transfer from the emergency department outside hospital. She was found to have multiple pelvic abscesses. She was treated with IV antibiotics. The abscesses were drained by Interventional Radiology. She continued to improve over the course of the subsequent 2-3 days. She was essentially afebrile throughout her stay. She had a white count that was elevated initially but quickly resolved. She had some episodes of hypotension but this has resolved in the last 24 hours. Which she was started on oral antibiotics in the last 24 hours and will be discharged on hospital day 4. She will continue oral antibiotics and pain medication. She will follow-up in 4 days. Time Spent with Patient Time attestation: Total time spent providing and/or coordinating discharge services: DS: Data Data Completed and Pending Labs on day of discharge: Labs from last 24 hours 02/05/21 05:58 Sodium 137 Potassium 3.8 Chloride 105 Carbon Dioxide 24 Anion Gap 8 BUN 4 L Creatinine 0.50 L Estim Creat Clear Calc 130 Estimated GFR > 60 Glucose 88 Calcium 8.6 Preliminary micro results at discharge 02/02/21 13:47 Anaerobic Culture - Preliminary Abscess Aerobic Culture - Preliminary 02/02/21 16:21 Blood Culture - Preliminary Blood 02/02/21 14:25 Blood Culture - Preliminary Blood Discharge Plan Discharge Consulting providers: Christopher Braden Discharging Clinician: Kervin Mckeon Patient Disposition: Home, Self-Care Activity: pelvic rest Diet: regular Patient Instructions: Antibiotic Form, Pelvic Inflammatory Disease (DC), Abscess (GEN) Stand Alone Forms: General Discharge Information Follow-up/Referrals: Kervin Mckeon MD [Physician] - Discharge Medications: New hydrocodone-acetaminophen 5-325 mg tablet 1 - 2 tablet PO Q4H PRN (Reason: pain) Qty: 15 RF: 0 Continued triamterene-hydrochlorothiazid 37.5-25 mg tablet 1 tablet PO DAILY RF: 0 norethindrone (contraceptive) [Jencycla] 0.35 mg tablet 0.35 mg PO DAILY RF: 0 Date of admission: 02/03/21 16:53 Primary Care Provider: NISREEN,MAYRA Galdamez Admitting Provider: Kervin Mckeon Attending physician on admission: Hannah Ferrer Condition: Stable
[2021-02-05] MEDS: levoFLOXacin 750 MG TABLET PO (08:23)
[2021-02-05] MEDS: SACCHAROMYCES BOULARDII 250 MG CAPSULE PO (08:24)
--- NOTE | 2021-02-05 18:03 | PM.IMPN ---
Progress Note: A&P Assessment and Plan (1) Sepsis: Code(s): A41.9 - Sepsis, unspecified organism Status: Acute (2) Pelvic abscess: Status: Acute (3) Pelvic inflammatory disease: Code(s): N73.9 - Female pelvic inflammatory disease, unspecified Status: Acute (4) Bacteremia: Code(s): R78.81 - Bacteremia Status: Acute (5) Hypertension: Code(s): I10 - Essential (primary) hypertension Status: Acute (6) Hypokalemia: Code(s): E87.6 - Hypokalemia Status: Acute Additional Plan Sepsis due to pelvic inflammatory disease with presenting symptoms with tachycardia and leukocytosis underlying pelvic abscesses as the site of infection Pelvic abscesses multiple seen in CT scan abdomen and pelvis. CT-guided aspiration/drainage 02/02- gram stain with WBC but no organisms, cultures negative to date. Suspected from underlying pelvic inflammatory disease. On empiric gentamicin clindamycin and ampicillin per OBGYN which was transitioned to oral Levo/flagyl 02/04 Vaginal bleeding: Mgt per primary, history of long-standing severe menorrhagia, she is on progesterone which is being titrated Hypokalemia: ordered replacement, monitor Right ureteritis? Reactive, this should be re-assessed once her PID is controlled and pelvic inflammation subsided Bacteremia with Gram-positive cocci in clusters: This was 1/4 bottles an outside hospital, coagulase-negative staph, deemed to be contaminant, vancomycin discontinued. Repeat blood cultures in house negative to date. Will hold Ibuprofen in setting of receiving gentamicin given combined nephrotoxicity DVT prophylaxis per primary Full code status Subjective Date/time seen: 02/05/21 18:03 She is feeling much better this morning. Abdominal pain is much improved. Hemodynamically stable. Potassium is normalized. Review of Systems Review of Systems: All systems reviewed & are unremarkable except as noted in HPI and below Exam Narrative: Gen: Alert, NAD Abd: Soft, NT, ND Heart: RRR Lungs: CTAB Ext: No lower extremity edema Objective Data Vital Signs Vital Signs: Vital Signs - 24 hr 02/04/21 20:00 02/04/21 23:48 02/05/21 03:50 Temperature 98.2 F 98.0 F 98.8 F Pulse Rate 61 82 82 Respiratory Rate 18 20 18 Blood Pressure 114/68 110/59 L 131/79 Pulse Oximetry 91 100 98 02/05/21 07:54 Temperature 96.0 F L Pulse Rate 82 Respiratory Rate 18 Blood Pressure 126/87 Pulse Oximetry 100 Intake/Output Intake/Output: Intake & Output 02/02/21 02/03/21 02/04/21 02/05/21 23:59 23:59 23:59 23:59 Intake Total 3277.875 2285 2770 1490 Output Total 700 1600 2200 1100 Balance 2577.875 685 570 390 Meds/Results Radiology Results: ITS Impressions Needle Aspiration CT 02/02/21 13:56 IMPRESSION: 1. CT-guided aspiration of a perisigmoid abscess yielding 4 mL clear, orange-colored fluid, which was discarded. 2. CT-guided aspiration of a right tubo-ovarian abscess using 9 mL opaque, wiseman fluid, which was sent for aerobic and anaerobic cultures. Labs Labs: Laboratory Results - last 24 hr 02/05/21 05:58 Sodium 137 Potassium 3.8 Chloride 105 Carbon Dioxide 24 Anion Gap 8 BUN 4 L Creatinine 0.50 L Estim Creat Clear Calc 130 Estimated GFR > 60 Glucose 88 Calcium 8.6
== END 2021-02-05 10:00 | disposition home or self-care (01) | DRG 518 ==
PROVIDERS: Internal Medicine; Internal Medicine Nephrology; Admitting Provider Obstetrics & Gynecology; PCP Nurse Practitioner; Visit Provider Obstetrics & Gynecology
DX: N70.03 Acute salpingitis and oophoritis (principal); N73.9 Female pelvic inflammatory disease, unspecified; E87.6 Hypokalemia; I10 Essential (primary) hypertension; E87.1 Hypo-osmolality and hyponatremia; N92.0 Excessive and frequent menstruation with regular cycle
CPT/HCPCS: 10160; 36415; 80048; 80053; 80170; 82948; 83735; 85027; 85610; 85730; 87040; 87070; 87075; 87205; 87491; 87591; A9270; C1769; J0290; J0780; J1170; J1580; J2405; J3370; J3480; J7030; J7042; J7121